=== PATIENT | male | born 1980 | race Caucasian/White ===

== ENCOUNTER 2022-10-01 10:48 | Emergency (ER) | payer OTHER ==
[~2022-10-01] VITALS: Ht 175.3 cm; Wt 68.0 kg
[2022-10-01 10:56] VITALS: BP 183/119
[2022-10-01 11:00] VITALS: BP 178/116
[2022-10-01 11:08] VITALS: BP 170/113
[2022-10-01 11:30] VITALS: BP 173/110
[2022-10-01] MEDS ORDERED: OMNICEF300 MG PO (11:34)
[2022-10-01 12:14] VITALS: BP 159/98
== END 2022-10-01 12:27 | disposition home or self-care (01) | DRG 605 ==
LOC: ED 10:48
PROC: 0HQEXZZ Repair Left Lower Arm Skin, External Approach (ICD-10-PCS; principal; 2022-10-01)
DX: S61.512A Laceration without foreign body of left wrist, initial encounter (principal); W26.8XXA Contact with other sharp object(s), not elsewhere classified, initial encounter; Y93.89 Activity, other specified